=== PATIENT | male | born 1980 | race African-American/Black ===

== ENCOUNTER 2022-09-24 17:41 | Emergency (ER) | payer MEDICAID, OTHER ==
[~2022-09-24] VITALS: Ht 170.2 cm; Wt 79.5 kg
[2022-09-24] MEDS ORDERED: predniSONE 20 MG TAB PO ONE (23:45)
[2022-09-24] MEDS ORDERED: diphenhdrAMINE HCL 25 MG CAP PO ONE (23:45)
[2022-09-25 00:58] VITALS: BP 110/62
== END 2022-09-25 00:59 | disposition home or self-care (01) ==
LOC: ER 17:41
DX: R21 Rash and other nonspecific skin eruption (principal); L20.9 Atopic dermatitis, unspecified
CPT/HCPCS: 99283; J7512

== ENCOUNTER 2022-10-22 20:13 | Emergency (ER) | payer MEDICAID ==
[~2022-10-22] VITALS: Ht 170.2 cm; Wt 80.0 kg
[2022-10-22 20:33] VITALS: BP 115/73
[2022-10-22] MEDS ORDERED: KETOROLAC TROMETH 30 MG/ML 1ML VIAL IM ONE (22:00)
[2022-10-22] MEDS ORDERED: HYDROcodone-ACET 5/325MG TAB PO ONE (22:00)
[2022-10-22] MEDS ORDERED: ONDANSETRON ODT 4 MG TAB PO ONE (22:00)
[2022-10-22] MEDS ORDERED: ALBUTEROL SULF 2.5 MG/0.5ML(0.5%) NEB SOLN NEB ONE (22:00)
[2022-10-22 23:25] LABS: Basophils # (auto) 0 10 ^3/uL (0-0.2); Basophils % (auto) 0.9 % (0.0-2.0); Eosinophils # (auto) 0.3 10 ^3/uL (0-0.8); Eosinophils % (auto) 6.1 % (0.0-7.0); Hematocrit 42.9 % (41.0-53.0); Hemoglobin 14.1 g/dL (13.5-17.5); Lymphocytes # (auto) 2.1 10 ^3/uL (0.4-5.4); Lymphocytes % (auto) 39.6 % (10.0-50.0); Mean Corpuscular Hgb Conc. 32.8 g/dL (32.0-36.0); Mean Corpuscular Volume 85.1 fL (80.0-100.0); Monocytes # (auto) 0.3 10 ^3/uL (0-1.3); Monocytes % (auto) 5.8 % (0.0-12.0); Neutrophils # (auto) 2.6 10 ^3/uL (1.6-8.6); Neutrophils % (auto) 47.6 % (37.0-80.0); Nucleated Red Blood Cells % 0.2 %; Red Blood Cells 5.04 10^6/uL (4.5-5.90); Red Cell Distribution Width 15.1 % (11.8-14.3); White Blood Cell 5.4 10^3/uL (4.4-10.8)
[2022-10-22 23:38] LABS: Calcium 9.2 mg/dL (8.5-10.1); Potassium 3.8 mmol/L (3.5-5.1)
[2022-10-22 23:41] LABS: BUN/Creatinine Ratio 13.8; Bilirubin, Total 0.3 mg/dL (0.2-1.0)
== END 2022-10-23 02:56 | disposition left against medical advice (07) ==
LOC: ER 20:14
DX: I10 Essential (primary) hypertension (principal); R06.02 Shortness of breath
CPT/HCPCS: 36415; 71045; 80053; 85025; 94640; 99284; Q0162

== ENCOUNTER 2022-10-23 05:40 | Emergency (ER) | payer MEDICAID ==
[~2022-10-23] VITALS: Ht 170.2 cm; Wt 77.0 kg
[2022-10-23 08:01] VITALS: BP 118/77
== END 2022-10-23 13:44 | disposition home or self-care (01) ==
LOC: ER 05:40
DX: S66.911A Strain of unspecified muscle, fascia and tendon at wrist and hand level, right hand, initial encounter (principal); J45.909 Unspecified asthma, uncomplicated; X58.XXXA Exposure to other specified factors, initial encounter; Y93.89 Activity, other specified; Y92.89 Other specified places as the place of occurrence of the external cause; Y99.8 Other external cause status
CPT/HCPCS: 73130